=== PATIENT | male | born 1980 | race Caucasian/White ===

== ENCOUNTER 2016-10-03 22:54 | Emergency (ER) | payer MEDICAID, OTHER ==
[~2016-10-03] VITALS: Ht 167.6 cm; Wt 63.5 kg
[2016-10-03] MEDS ORDERED: ONDANSETRON HCL 4 MG/2 ML VIAL ONE (23:06)
[2016-10-03 23:30] LABS: Basophils # (auto) 0.1 uL; Basophils % (auto) 0.7 % (0.0-2.0); Eosinophils # (auto) 0.1 uL; Eosinophils % (auto) 1.6 % (0.0-7.0); Hemoglobin 16.4 g/dL (13.5-17.5); Lymphocytes # (auto) 2.6 uL; Mean Corpuscular Hemoglobin 30.2 pg (28.0-32.0); Mean Corpuscular Hgb Conc. 34.1 g/dL (32.0-36.0); Mean Corpuscular Volume 88.6 fL (80.0-100.0); Mean Platelet Volume 8.4 fL (7.4-10.4); Monocytes # (auto) 0.6 uL; Monocytes % (auto) 6.9 % (0.0-12.0); Neutrophils # (auto) 5.4 uL; Neutrophils % (auto) 61.8 % (37.0-80.0); Platelet Count (auto) 241 10^3/uL (140-450); Red Cell Distribution Width 13.3 % (11.6-16.0); White Blood Cell 8.8 10^3/uL (4.4-10.8)
[2016-10-03] MEDS ORDERED: ONDANSETRON HCL 4 MG/2 ML VIAL IV ONE (23:45)
[2016-10-04 00:09] LABS: Albumin 4.6 g/dL (3.4-5.0); Anion Gap 10 (5-15); BUN/Creatinine Ratio 19.6; Blood Urea Nitrogen 20 mg/dL (7-18); Calcium 8.8 mg/dL (8.5-10.1); Carbon Dioxide 26 mmol/L (21-32); Chloride 107 mmol/L (98-107); GFR African American 108 mL/min; GFR Non-African American 89 mL/min; Glucose 117 mg/dL (74-106); Magnesium 2.3 mg/dL (1.6-2.6); Potassium 3.6 mmol/L (3.5-5.1); Sodium 143 mmol/L (136-145)
[2016-10-04 00:17] LABS: Alkaline Phosphatase 80 U/L (45-117); Aspartate Aminotransferase 39 U/L (15-37); Bilirubin, Total 0.4 mg/dL (0.2-1.0); Salicylate 2.5 mg/dL (2.8-20.0); Total Protein 8.1 g/dL (6.4-8.2)
[2016-10-04 00:19] LABS: Acetaminophen < 2.0 ug/mL (10-30)
[2016-10-04] MEDS ORDERED: SODIUM CHLORIDE 0.9% 1,000 ML IV ONE (01:00)
[2016-10-04 01:28] VITALS: BP 152/75
[2016-10-04 02:41] LABS: Urine Bilirubin Negative (Negative); Urine Blood Negative /uL (Negative); Urine Color Yellow (Yellow); Urine Glucose Normal (Normal); Urine Hyaline Cast MOD /lpf (0 - 2); Urine Mucus FEW (None Seen); Urine Nitrite Negative (Negative); Urine RBC 1 /hpf (0 - 3); Urine Squamous Epithelial Cell FEW /hpf (<5)
[2016-10-04 02:42] LABS: Urine Ketone 1+ (Negative)
== END 2016-10-04 04:18 | disposition home or self-care (01) ==
LOC: ER 22:54 → EDBD 22:54 → ER 10-04 04:18
DX: R07.89 Other chest pain (principal); R40.1 Stupor; F17.210 Nicotine dependence, cigarettes, uncomplicated; F12.10 Cannabis abuse, uncomplicated; F15.10 Other stimulant abuse, uncomplicated; F11.10 Opioid abuse, uncomplicated; Z88.0 Allergy status to penicillin
CPT/HCPCS: 36415; 71010; 80053; 80307; 80320; 80329; 81001; 83735; 84484; 85025; 93005; 94761; 96361; 96374; 99285; J2405; J7030